=== PATIENT | male | born 1935 | race Caucasian/White ===

== ENCOUNTER 2016-12-08 11:09 | Inpatient (IN) | payer OTHER, BC ==
[2016-12-08 11:46] VITALS: BMI 35.2
--- NOTE | 2016-12-08 11:55 | PDOC ---
History of Present Illness <Jeff Youssef - Last Filed: 12/08/16 14:45> - History of Present Illness Initial Comments: 12/08/16 19:08 Patient is an 81 year old male with significant medical hx of HTN, DM, diabetic neuropathy, and BPH who has been sent to the ED by Dr. Pal for anemia. The patient received blood work several times over the past few weeks that revealed a significant drop in his hemoglobin. Patient started out having an H/ H of 14/48, his following blood work revealed a hemoglobin of 8.9, and then after that it was 8.2.The patient complains of lightheadedness and shortness of breath after walking about 25 feet. The patient denies any blood in stool or urine, recent heavy bleeding or trauma. His BMs have been regular and normal in color; he denies any black stools. Social Hx: Denies ETOH use and tobacco use (former smoker) GI: Harry Armas MD PMD: Alvaro Pal MD <Kelsea Soto - Last Filed: 12/08/16 19:10> - General Chief Complaint: Revisit, Lab Variance Stated Complaint: LAB VARIANCE (PCP SENT) Time Seen by Provider: 12/08/16 11:54 Past History - Psycho/Social/Smoking Cessation Hx Suicidal Ideation: No Smoking History: Former smoker Have you smoked in the past 12 months: No Information on smoking cessation initiated: No <Jeff Youssef - Last Filed: 12/08/16 14:45> <Kelsea Soto - Last Filed: 12/08/16 19:10> - Past Medical History Allergies/Adverse Reactions: Allergies Allergy/AdvReac Type Severity Reaction Status Date / Time No Known Allergies Allergy Verified 12/08/16 11:43 Home Medications: Ambulatory Orders Lisinopril [Prinivil] 20 mg PO DAILY 12/08/16 Metformin HCl 500 mg PO BID 12/08/16 Silodosin [Rapaflo] 8 mg PO DAILY 12/08/16 Review of Systems - Review of Systems Comments:: 12/08/16 19:08 CONSTITUTIONAL: No reported: Fever, Chills, Diaphoresis, Generalized Weakness, Malaise, Loss of Appetite HEENT: No reported: Rhinorrhea, Nasal Congestion, Throat Pain, Throat Swelling, Difficulty Swallowing, Mouth Swelling, Ear Pain, Eye Pain, Visual Changes CARDIOVASCULAR: Reported: Lightheadedness No reported: Chest Pain, Syncope, Palpitations, Irregular Heart Rate, Peripheral Edema RESPIRATORY: Reported: SOB with Exertion No reported: Cough, Shortness of Breath, Orthopnea, Wheezing, Stridor, Hemoptysis GASTROINTESTINAL: No reported: Abdominal pain, Abdominal Distension, Nausea, Vomiting, Diarrhea, Constipation, Melena, Hematochezia GENITOURINARY: No reported: Dysuria, Frequency, Urgency, Hesitancy, Flank Pain, Genital Pain MUSCULOSKELETAL: No reported: Myalgia, Arthralgia, Joint Swelling, Back pain, Neck Pain SKIN: No reported: Rash, Itching, Pallor HEMEATOLOGIC/IMMUNOLOGIC: No reported: Easy Bleeding, Easy Bruising, Lymphadenopathy, Frequent infections ENDOCRINE: No reported: Unexplained Weight Gain, Unexplained Weight Loss, Heat Intolerance , Cold Intolerance NEUROLOGIC: No reported: Headache, Focal Weakness, Paresthesias, Vertigo, Lightheadedness, Unsteady Gait, Seizure, Mental Status Changes, Incontinence PSYCHIATRIC: No reported: Anxiety, Depression <Kelsea Soto - Last Filed: 12/08/16 19:10> *Physical Exam - Vital Signs Last Vital Signs Temp Pulse Resp BP Pulse Ox 97.7 F 96 H 19 156/71 96 12/08/16 11:43 12/08/16 11:43 12/08/16 11:43 12/08/16 11:43 12/08/16 11:43 <MikaelJeff - Last Filed: 12/08/16 14:45> - Vital Signs Last Vital Signs Temp Pulse Resp BP Pulse Ox 97.7 F 89 17 120/81 98 12/08/16 11:43 12/08/16 13:44 12/08/16 13:44 12/08/16 13:44 12/08/16 13:44 - Physical Exam Comments: 12/08/16 19:08 GENERAL: The patient is awake, alert, and fully oriented, Nontoxic - in no acute distress. HEAD: Normocephalic, atraumatic. EYES: extraocular movements intact, sclera anicteric, conjunctiva clear. ENT: Normal voice, Moist mucous membranes. NECK: Normal range of motion, supple LUNGS: Breath sounds equal, clear to auscultation bilaterally. No wheezes, no rhonchi, no rales. HEART:irregularly irregular, without murmur, rub or gallop. ABDOMEN: Soft, nontender, normoactive bowel sounds. No guarding, no rebound.No CVA tenderness EXTREMITIES: Normal range of motion, no edema. No clubbing or cyanosis. No cords , erythema, or tenderness. NEUROLOGICAL: No facial assymetry, Normal speech, PSYCH: Normal mood, normal affect. SKIN: Warm, Dry, normal turgor, RECTAL: Minimal yellow stool in rectal vault. <Kelsea Soto - Last Filed: 12/08/16 19:10> Heart Score/ECG Review - ECG Impressions Comment:: 12/08/16 13:33 Twelve-lead EKG was performed and reviewed by me. Irregularly irregular rrate of 89 <Jeff Youssef - Last Filed: 12/08/16 14:45> ED Treatment Course - LABORATORY CBC & Chemistry Diagram: 12/08/16 12:44 12/08/16 12:44 <Jeff Youssef - Last Filed: 12/08/16 14:45> - LABORATORY CBC & Chemistry Diagram: 12/08/16 12:44 12/08/16 12:44 - ADDITIONAL ORDERS Additional order review: Laboratory Results 12/08/16 12/08/16 12/08/16 12:44 12:44 12:44 INR Sodium 142 Potassium 4.1 Chloride 103 Carbon Dioxide 28 Anion Gap 11 BUN 16 Creatinine 0.9 Creat Clearance w eGFR > 60 Random Glucose 108 H Calcium 8.7 Total Bilirubin 0.5 AST 12 L ALT 18 Alkaline Phosphatase 63 Total Protein 7.2 Albumin 3.6 Stool Occult Blood Negative Blood Type O POSITIVE Antibody Screen Negative 12/08/16 12:44 INR 1.20 H Sodium Potassium Chloride Carbon Dioxide Anion Gap BUN Creatinine Creat Clearance w eGFR Random Glucose Calcium Total Bilirubin AST ALT Alkaline Phosphatase Total Protein Albumin Stool Occult Blood Blood Type Antibody Screen 12/08/16 12:44 RBC 4.84 MCV 60.4 L MCHC 28.9 L RDW 20.6 H MPV 8.5 Neutrophils % 75.5 Lymphocytes % 12.8 Monocytes % 8.5 Eosinophils % 2.7 Basophils % 0.5 - RADIOLOGY Radiograph Interpretation: 12/08/16 19:09 Chest X-Ray Impression: Large heart. No acute pathology. Reported By: Dwaine Greer MD - Consult/PCP Time Called: 13:45 Case discussed with personal care physician: Parvez Lynn - Additional Consults Time Called: 15:15 Consult/PCP: Daljit Bourgeois MD <Kelsea Soto - Last Filed: 12/08/16 19:10> Medical Decision Making - Medical Decision Making 12/08/16 12:22 81y M htn, dm, sent to the ED for evaluation of anemia - the pt has been feelig lightheaded the past few weeks, had been getting outpatient blood work that was slowly trending lower - hgb was 14 a few months ago, 8.9 2 weeks ago a.d 8.2 a few days ago. Pt denies any other sypmtoms otherwise including rectal bleeding, melena, bruising. on exam pt has unremarkable exam, stool was scant in retal vault, but non melanotic. will repeat blood work if severely anemic may need transfusion, but may be able to get outpatient management if hemaglobin not severe. A portion of this note was documented by scribe services under my direction. I have reviewed the details of the note, within reason, and agree with the documentation with the following case summary and management plan written by me 12/08/16 13:33 ekg noted for new onset afib will need to be admitted for further management of new afib stool guaiac negative 12/08/16 14:[address] lynn pt will need further risk stratefication prior to starting a/c by GI will dfer a/c for now will admit to hospitalist service will be admitted under dr. loya service Case discussed in detail with admitting physician including history, physical exam and ancillary studies. Admitting physician has assumed care for the patient, will follow all pending diagnostics and will complete the evaluation and treatment. <Jeff Youssef - Last Filed: 12/08/16 14:45> *DC/Admit/Observation/Transfer - Discharge Dispostion Admit: Yes <Jeff Youssef - Last Filed: 12/08/16 14:45> - Attestations Scribe Attestion: 12/08/16 19:09 Documentation prepared by Kelsea Soto, acting as director global medical affairs for Jeff Youssef MD. <Kelsea Soto - Last Filed: 12/08/16 19:10> Diagnosis at time of Disposition: Anemia Qualifiers: Anemia type: unspecified type Qualified Code(s): D64.9 - Anemia, unspecified Atrial fibrillation Qualifiers: Atrial fibrillation type: unspecified Qualified Code(s): I48.91 - Unspecified atrial fibrillation
[2016-12-08 13:19] LABS: BASOPHIL 0.5 % (0-2.0); EOSINOPHIL 2.7 % (0-4.5); MCHC 28.9 g/dl (32.0-35.9); MEAN CELL VOLUME 60.4 fl (80-96); MEAN PLT VOLUME 8.5 fl (7.5-11.1); NEUTROPHILS 75.5 % (42.8-82.8); PLATELET COUNT 308 K/MM3 (134-434); RDW 20.6 % (11.9-15.9); WHITE BLOOD COUNT 12.3 K/mm3 (4.0-10.0)
[2016-12-08 13:21] LABS: MCH 17.4 pg (25.7-33.7)
[2016-12-08 13:32] LABS: INR 1.2 (0.82-1.09); PROTHROMBIN TIME (PATIENT) 13.2 SEC (9.98-11.88)
[2016-12-08 13:47] LABS: ALBUMIN 3.6 g/dl (3.4-5.0); ALK PHOS 63 U/L (45-117); ANION GAP 11 (8-16); BILIRUBIN,TOTAL 0.5 mg/dL (0.2-1.0); CALCIUM 8.7 mg/dL (8.5-10.1); CO2 28 mmol/L (21-32); CREATININE 0.9 mg/dL (0.7-1.3); GLUCOSE,RANDOM 108 mg/dL (74-106); SGOT/AST 12 U/L (15-37); SGPT/ALT 18 U/L (12-78); TOT PROT 7.2 g/dl (6.4-8.2)
[2016-12-08 13:58] LABS: ANISOCYTOSIS 2+; HYPOCHROMIA 2+; OVALOCYTES 2+; POIKILOCYTOSIS 1+; POLYCHROMASIA 1+
--- NOTE | 2016-12-08 16:02 | HP ---
CHIEF COMPLAINT:Sent by PMD for anemia PCP:Lalitha HISTORY OF PRESENT ILLNESS: 81M with PMH of HTN DM diabetic neuropathy BPH presents to the [facility] at the direction of his PMD for worsening anemia. Per the patient his Hb was 14 a few months ago and he had a CBC done on last and was called by PMD to repeat the test yesterday since his hemoglobin was low. Results came back today which showed worsening anemia and he was sent to the ED for evaluation. In the ED he was also noted to be anemic. On further evaluation he was found to be in new onset A fib. He denies nausea vomiting fevers chills chest pain palpitations hematuria or dysuria. He states his exercise tolerance over the past 5-6 months has been declining. He now has to stop for shortness of breath after walking about 25 feet. He also endorses mild amount dizziness and he states it is most notably when he yawns. ER course was notable for: (1)Labs (2)CXR (3) Recent Travel:Denies PAST MEDICAL HISTORY:As above Social History: Smoking:Denies Alcohol:Denies Drugs: Denies Allergies No Known Allergies Allergy (Verified 12/08/16 11:43) HOME MEDICATIONS: Home Medications Medication Instructions Recorded Lisinopril [Prinivil] 20 mg PO DAILY 12/08/16 Metformin HCl 500 mg PO BID 12/08/16 Silodosin [Rapaflo] 8 mg PO DAILY 12/08/16 REVIEW OF SYSTEMS CONSTITUTIONAL: Absent: fever, chills, diaphoresis, generalized weakness, malaise, loss of appetite, weight change HEENT: Absent: rhinorrhea, nasal congestion, throat pain, throat swelling, difficulty swallowing, mouth swelling, ear pain, eye pain, visual changes CARDIOVASCULAR: Absent: chest pain, syncope, palpitations, irregular heart rate, lightheadedness , peripheral edema RESPIRATORY: Absent: cough, shortness of breath, orthopnea, wheezing, stridor, hemoptysis Present: dyspnea with exertion GASTROINTESTINAL: Absent: abdominal pain, abdominal distension, nausea, vomiting, diarrhea, constipation, melena, hematochezia GENITOURINARY: Absent: dysuria, frequency, urgency, hesitancy, hematuria, flank pain, genital pain MUSCULOSKELETAL: Absent: myalgia, arthralgia, joint swelling, back pain, neck pain SKIN: Absent: rash, itching, pallor HEMATOLOGIC/IMMUNOLOGIC: Absent: easy bleeding, easy bruising, lymphadenopathy, frequent infections ENDOCRINE: Absent: unexplained weight gain, unexplained weight loss, heat intolerance, cold intolerance NEUROLOGIC: Absent: headache, focal weakness or paresthesias, unsteady gait, seizure, mental status changes, bladder or bowel incontinence Present: dizziness PSYCHIATRIC: Absent: anxiety, depression, suicidal or homicidal ideation, hallucinations. PHYSICAL EXAMINATION Vital Signs - 24 hr 12/08/16 15:20 Pulse Rate 90 Respiratory 20 Rate Blood Pressure 133/80 O2 Sat by Pulse 97 Oximetry (%) GENERAL: Awake, alert, and fully oriented, in no acute distress. HEAD: Normal with no signs of trauma. EYES: Pupils equal, round and reactive to light, extraocular movements intact, Positive for conjunctival pallor. EARS, NOSE, THROAT: Ears normal, nares patent, oropharynx clear without exudates. Moist mucous membranes. NECK: Normal range of motion, supple without lymphadenopathy, JVD, or masses. LUNGS: Breath sounds equal, clear to auscultation bilaterally. No wheezes, and no crackles. No accessory muscle use. HEART: Irregularly Irregular rhythm, S1S2 without murmur ABDOMEN: Soft, nontender, not distended, normoactive bowel sounds, no guarding, no rebound MUSCULOSKELETAL: No CVA tenderness. UPPER EXTREMITIES: warm, well-perfused. No peripheral edema. LOWER EXTREMITIES: warm, well-perfused. No calf tenderness. trace non pitting edema. NEUROLOGICAL: Cranial nerves II-XII intact. Normal speech. PSYCHIATRIC: Cooperative. Good eye contact. Appropriate mood and affect. EKG: Afib CXR: enlarged heart no acute pathology [id number] Active Medications Generic Name Dose Route Start Last Admin Trade Name Freq PRN Reason Stop Dose Admin Gabapentin 300 mg 12/08/16 22:00 Neurontin - PO BID [facility] Insulin Aspart 1 vial 12/08/16 16:30 Novolog Vial Sliding Scale - SQ ACHS [facility] Protocol Lisinopril 20 mg 12/09/16 10:00 Prinivil PO DAILY [facility] Tamsulosin HCl 0.4 mg 12/09/16 08:30 Flomax - PO DAILY@0830 [facility] ASSESSMENT/PLAN: 81M with HTN DM and BPH admitted to the hospital for new onset A fib and acute microcytic anemia. New onset A fib: possible may be due to acute onset anemia Admit to telemetry Echo ordered Troponin negative cardiology consult [id number] score 4 Will hold on anticoagulation at this time secondary to anemia rate is controlled at this time Check TFTs Microcytic anemia:unsure of the cause at this time Will send iron studies GI consult Retic count trend CBC transfuse PRN Stool for occult blood negative RDW high check B12 and folate HTN: restart lisinopril Trend BP DM: hold metformin ISS finger sticks for BGM ACHS HbA1C BPH: we do not carry rapaflo will start flomax FEN: no IVF no electrolyte issues diabetic diet PPx: hold chemical prophylaxis for now -will place SCDs no GI PPx criteria met Will assess daily need for PT at this time he does not need PT consult as he was ambulating patient seen and case discussed with attending Dr. Castaneda Visit type - Emergency Visit Emergency Visit: Yes ED Registration Date: 12/08/16 Care time: The patient presented to the Emergency Department on the above date and was hospitalized for further evaluation of their emergent condition. - New Patient This patient is new to me today: Yes Date on this admission: 12/08/16 - Critical Care Critical Care patient: No
--- NOTE | 2016-12-08 16:31 | PN ---
Teaching Attending Note Name of Resident: Jose Enrique Johnson ATTENDING PHYSICIAN STATEMENT I saw and evaluated the patient. I reviewed the resident's note and discussed the case with the resident. I agree with the resident's findings and plan as documented. SUBJECTIVE: The patient is an 81 year old male with a significant past medical history of hypertension and type two diabetes, who presented to the ED at the request of his primary care physician for evaluation of new onset anemia. He denies melena , hematochezia, hematuria, back/thigh pain. In the ED, he was found to have atrial fibrillation. OBJECTIVE: The patient is well appearing and in no acute distress He was guiac negative in the ED ASSESSMENT AND PLAN: -Anemia Initial guiac negative Low MCV with high RWN points to blood loss and a GI source Will need to repeat guiac Will conduct anemia work-up, beginning with reticulocyte count Will consult GI -Atrial fibrillation He is rate controlled [id number] indicates need for anticoagulation but we will hold for now, pending cardiology and gastroenterology input given suspected GI bleeding His dyspnea is likely due to anemia Will obtain TTE Will consult cardiology See resident note for full details
--- NOTE | 2016-12-08 16:38 | CON.CARD ---
Consult Consult Specialty:: cardiology Referred by:: marie Reason for Consultation:: afib, anemia - History of Present Illness Chief Complaint: dizziness History of Present Illness: 81 yo male referred to ER by dr salazar for lightheadedness and new anemia. per ER notes, his hgb was 8's with PMD recently, from 14 a few months ago. occult blood negative in ER. he was noted to be in new afib with controlled HR. pt describes feeling mild dizzy/LH "all the time" for past 2 wks or so. including both at rest (e.g. driving car) and walking/standing up. he also has new sob if walks short distances, which he did not have before. no cp/pressure/tightness, no palpitations. PMH: DM HTN no prior CAD/CHF remote ex-cigs (50 yrs ago) no FH of early MIs - Smoking History Smoking history: Former smoker Have you smoked in the past 12 months: No Home Medications - Allergies Allergies/Adverse Reactions: Allergies Allergy/AdvReac Type Severity Reaction Status Date / Time No Known Allergies Allergy Verified 12/08/16 11:43 - Home Medications Home Medications: Ambulatory Orders Lisinopril [Prinivil] 20 mg PO DAILY 12/08/16 Metformin HCl 500 mg PO BID 12/08/16 Silodosin [Rapaflo] 8 mg PO DAILY 12/08/16 Review of Systems - Review of Systems Constitutional: denies: Chills, Fever Eyes: denies: Eye Pain HENT: denies: Nasal Congestion Neck: denies: Stiffness Cardiovascular: denies: Palpitations Respiratory: denies: Orthopnea, PND Gastrointestinal: denies: Diarrhea, Rectal Bleeding Genitourinary: denies: Burning, Hematuria Musculoskeletal: denies: Muscle Pain Integumentary: denies: Rash Neurological: denies: Numbness, Seizure, Syncope Endocrine: denies: Excessive Sweating Hematology/Lymphatic: denies: Excessive Bleeding Vital Signs: Vital Signs Temperature 97.7 F 12/08/16 11:43 Pulse Rate 90 12/08/16 15:20 Respiratory Rate 20 12/08/16 15:20 Blood Pressure 133/80 12/08/16 15:20 O2 Sat by Pulse Oximetry (%) 97 12/08/16 15:20 Constitutional: Yes: Well Nourished, No Distress Eyes: No: Sclera Icterus HENT: No: Nasal Congestion Neck: No: Decreased ROM Respiratory: Yes: CTA Bilaterally. No: Accessory Muscle Use, Rales, Wheezes Gastrointestinal: Yes: Normal Bowel Sounds. No: Distention, Hepatomegaly, Palpable Mass, Tenderness Cardiovascular: Yes: Pulse Irregular JVD: Yes Carotid Bruit: No PMI: Non-Displaced Heart Sounds: Yes: S1, S2. No: Gallop Murmur: No: Systolic Murmur, Diastolic Murmur Musculoskeletal: Yes: Other (No kyphosis) Extremities: No: Cold, Cyanosis Edema: No Peripheral Pulses: 2+ Left Carotid, 2+ Right Carotid, 2+ Left Doralis Pedis, 2+ Right Dorsalis Pedis Integumentary: No: Jaundice Neurological: Yes: Alert, Oriented (x3) Psychiatric: No: Agitated - Other Data Labs, Other Data: INR, PTT INR 1.20 (0.82-1.09) H 12/08/16 12:44 Laboratory Tests 12/08/16 12/08/16 12/08/16 12:44 12:44 12:44 WBC 12.3 H Hgb 8.4 L MCV 60.4 L Plt Count 308 INR 1.20 H Sodium 142 Potassium 4.1 Carbon Dioxide 28 BUN 16 Creatinine 0.9 AST 12 L ALT 18 ekg 12/08/16: afib (89 bpm); normal axis/intervals; no path q's; no ST-T abn telem: afib, good HRs Imaging - Results Chest X-ray: Report Reviewed (clear lungs/pleura) Assessment/Plan new atrial fib: -HRs controlled (without meds) -? if contributing to new dizziness and/or LOPEZ sx's, vs all sec to anemia ( these sx's going on 2 wks which, of note, is the first time labs showed hgb down , per ER note) -despite pt without overt rectal bleeding or melena, and stool was neg for occult blood, the precipitous decline in counts from few mo prior and the very low MCV are concerning for intermittent occult GIBs. -starting with baseline of Hgb 8, he could have catastrophic consequences if started on AC and bleeds briskly. -CHADS VASC = 4, with approx 4%/year risk of CVA -the risk of stroke in next several days is therefore statistically much less than risk of dangerous bleeding on AC, and hence AC will be deferred until GIB w /u is completed and pt can be risk-stratified for severe bleeding -check echo (no overt chf present but ? JVD on exam--vs irreg afib arterial pulsations mimicking jvd pulsations) SOB with exertion: -new sx x 2 wks -suspect sec to anemia (as above) -also could be sx of afib and loss of AV synchrony -no overt chf, ? of JVD as disc'd above, cxr clear -check bnp -defer lasix -f/u echo -given anemia and afib are 2 much more likely explanation for these sx's, and pt without ischemic ecg findings or cp, will defer stress test at present time anemia: -as disc'd above -await GI input, ? heme (at discretion of hospitalists coverage) HTN: -reasonable control here -cont home lisinopril, given no brisk bleeding is suspected DM: -on orals at home -per pmd preop CV eval: -may need EGD and FOC -Revised CV Risk Index = 1, unknown functional status -no s/sx of overt chf or acute myocardial ischemia -he is at low-intermediate risk for periop CV complications from low risk endoscopic procedures--may proceed without further testing
[2016-12-08] MEDS: INSULIN SLIDING SCALE (NOVOLOG) 1 VIAL SQ SCH ×2 (17:17→22:44)
--- NOTE | 2016-12-08 17:25 | EKG ---
Test Reason : Blood Pressure : / mmHG Vent. Rate : 089 BPM Atrial Rate : 089 BPM P-R Int : 000 ms QRS Dur : 098 ms QT Int : 370 ms P-R-T Axes : 000 -03 022 degrees QTc Int : 450 ms ATRIAL FIBRILLATION NONSPECIFIC ST ABNORMALITY ABNORMAL ECG NO PREVIOUS ECGS AVAILABLE Confirmed by KIRBY FLOYD MD ([id number]) on 12/08/2016 5:25:30 PM Referred By: Confirmed By:KIRBY FLOYD MD
[2016-12-08 17:53] LABS: FERRITIN 8.836 ng/ml (16.4-293.9); THYROID STIMULATING HORMONE 2.02 uIU/ml (0.358-3.74)
[2016-12-08] MEDS: GABAPENTIN 300 MG CAPSULE (FP) PO SCH (22:42)
[2016-12-09] MEDS: INSULIN SLIDING SCALE (NOVOLOG) 1 VIAL SQ SCH ×4 (06:28→21:43)
--- NOTE | 2016-12-09 08:00 | CON.GI ---
Consult Consult Specialty:: GI Referred by:: Dr Pal Reason for Consultation:: Anemia - History of Present Illness Chief Complaint: lightheadedness, LOPEZ History of Present Illness: 81 M with h/o DM, HTN, admitted with anemia and new AF. He c/o recent LOPEZ and fatigue. Hgb was noted to be 8 when checked by PCP, formerly 14. He is a good historian and denies black or red stools at any time in his recollection. He has had no pain and states his symptoms began acutely 2 weeks ago. He is currently in AF and is comfortable at this time. There have been no recent surgeries and he denies any pain or swelling. - History Source History Provided By: Patient, Medical Record Limitations to Obtaining History: No Limitations - Past Medical History Cardio/Vascular: Yes: HTN Renal/: Yes: BPH Endocrine: Yes: Diabetes Mellitus - Smoking History Smoking history: Former smoker Have you smoked in the past 12 months: No Home Medications - Allergies Allergies/Adverse Reactions: Allergies Allergy/AdvReac Type Severity Reaction Status Date / Time No Known Allergies Allergy Verified 12/08/16 11:43 - Home Medications Home Medications: Ambulatory Orders Lisinopril [Prinivil] 20 mg PO DAILY 12/08/16 Metformin HCl 500 mg PO BID 12/08/16 Silodosin [Rapaflo] 8 mg PO DAILY 12/08/16 Physical Exam-GI Vital Signs: Vital Signs Temperature 97.8 F 12/09/16 01:00 Pulse Rate 76 12/09/16 06:00 Respiratory Rate 20 12/09/16 06:00 Blood Pressure 104/69 12/09/16 06:00 O2 Sat by Pulse Oximetry (%) 98 12/08/16 18:27 Constitutional: Yes: Well Nourished, No Distress HENT: Yes: Normocephalic Neck: Yes: Supple Cardiovascular: Yes: Regular Rate and Rhythm Respiratory: Yes: CTA Bilaterally Gastrointestinal Inspection: Yes: WNL ...Auscultate: Yes: Normoactive Bowel Sounds ...Palpate: Yes: Soft. No: Tenderness ...Rectal Exam: Yes: Guaiac Negative (in ER.) Neurological: Yes: WNL Labs: INR, PTT INR 1.20 (0.82-1.09) H 12/08/16 12:44 Assessment/Plan 81 M with above history admitted with new AF and anemia. He denies recent bleeding and is guaiac neg. Acute onset of symptoms likely secondary to AF. Etiology of anemia unclear. Will need EGD and colonoscopy which will be done tomorrow AM at 8AM if cleared by cardiology. Consider heme consult as there is no overt evidence of GIB
[2016-12-09 08:08] LABS: BASOPHIL 0.5 % (0-2.0); EOSINOPHIL 3.7 % (0-4.5); MCHC 29.1 g/dl (32.0-35.9); MEAN CELL VOLUME 60.6 fl (80-96); MEAN PLT VOLUME 8.7 fl (7.5-11.1); NEUTROPHILS 71.8 % (42.8-82.8); PLATELET COUNT 287 K/MM3 (134-434); RDW 20.3 % (11.9-15.9); WHITE BLOOD COUNT 10.7 K/mm3 (4.0-10.0)
[2016-12-09 08:16] LABS: MCH 17.6 pg (25.7-33.7)
[2016-12-09 08:32] LABS: ANION GAP 10 (8-16); CALCIUM 8.3 mg/dL (8.5-10.1); CO2 27 mmol/L (21-32); CREATININE 0.8 mg/dL (0.7-1.3); GLUCOSE,RANDOM 108 mg/dL (74-106); PHOSPHOROUS 3.2 mg/dL (2.5-4.9)
[2016-12-09] MEDS: GABAPENTIN 300 MG CAPSULE (FP) PO SCH ×2 (09:29→21:43)
[2016-12-09] MEDS: TAMSULOSIN HCL 0.4 MG CAP.ER.24H (FP) PO SCH (09:29)
[2016-12-09] MEDS: LISINOPRIL 20 MG TABLET (FP) PO SCH (09:29)
[2016-12-09 10:27] LABS: TROPONIN I < 0.02 ng/ml (0.00-0.05)
--- NOTE | 2016-12-09 10:35 | PN ---
Progress Note (short form) - Note Progress Note: s: no cp sob palps dizzy o: Vital Signs Period Temp Pulse Resp BP Sys/Turcios Pulse Ox Last 24 Hr 97.3 F-98.1 F 76-96 17-20 104-156/57-81 96-98 Constitutional: Yes: Well Nourished, No Distress Eyes: No: Sclera Icterus Respiratory: Yes: CTA Bilaterally. No: Accessory Muscle Use, Rales, Wheezes Gastrointestinal: Yes: Normal Bowel Sounds. No: Distention, Hepatomegaly, Palpable Mass, Tenderness Cardiovascular: Yes: Pulse Irregular Heart Sounds: Yes: S1, S2. No: Gallop Murmur: No: Systolic Murmur, Diastolic Murmur Extremities: No: Cold, Cyanosis Edema: No Integumentary: No: Jaundice diaphoresis Neurological: Yes: Alert, Oriented (x3) Psychiatric: No: Agitated Current Medications Generic Name Dose Route Start Last Admin Trade Name Freq PRN Reason Stop Dose Admin Bisacodyl 10 mg 12/09/16 16:00 Dulcolax - PO 12/09/16 20:01 1600,2000 DINO Gabapentin 300 mg 12/08/16 22:00 12/09/16 09:29 Neurontin - PO 300 mg BID DINO Administration Insulin Aspart 1 vial 12/08/16 16:30 12/09/16 06:28 Novolog Vial Sliding Scale - SQ Not Given ACHS [facility] Protocol Lisinopril 20 mg 12/09/16 10:00 12/09/16 09:29 Prinivil PO 20 mg DAILY DINO Administration Polyethylene Glycol 255 gm 12/09/16 16:00 Miralax (For Bowel Prep) - PO 12/09/16 16:01 ONCE ONE Tamsulosin HCl 0.4 mg 12/09/16 08:30 12/09/16 09:29 Flomax - PO 0.4 mg DAILY@0830 DINO Administration CBC, BMP 12/09/16 05:35 12/09/16 05:35 ekg 12/08/16: afib (89 bpm); normal axis/intervals; no path q's; no ST-T abn telem: afib, good HRs Assessment/Plan new atrial fib: -HRs controlled (without meds) -? if contributing to new dizziness and/or LOPEZ sx's, vs all sec to anemia ( these sx's going on 2 wks which, of note, is the first time labs showed hgb down , per ER note) -despite pt without overt rectal bleeding or melena, and stool was neg for occult blood, the precipitous decline in counts from few mo prior and the very low MCV are concerning for intermittent occult GIBs. -starting with baseline of Hgb 8, he could have catastrophic consequences if started on AC and bleeds briskly. -CHADS VASC = 4, with approx 4%/year risk of CVA -the risk of stroke in next several days is therefore statistically much less than risk of dangerous bleeding on AC, and hence AC will be deferred until GIB w /u is completed and pt can be risk-stratified for severe bleeding -check echo SOB with exertion: -new sx x 2 wks -suspect sec to anemia (as above) -also could be sx of afib and loss of AV synchrony -no overt chf, cxr clear -defer lasix -f/u echo -given anemia and afib are 2 much more likely explanation for these sx's, and pt without ischemic ecg findings or cp, will defer stress test at present time anemia: -as disc'd above -await GI input, ? heme (at discretion of hospitalists coverage) HTN: -reasonable control here -cont home lisinopril, given no brisk bleeding is suspected DM: -on orals at home -per pmd preop CV eval: -may need EGD and FOC -Revised CV Risk Index = 1, unknown functional status -no s/sx of overt chf or acute myocardial ischemia -he is at low-intermediate risk for periop CV complications from low risk endoscopic procedures--may proceed without further testing
--- NOTE | 2016-12-09 15:42 | PN ---
Physical Exam: SUBJECTIVE: Patient seen and examined at bedside feels well no complaints OBJECTIVE: Vital Signs Period Temp Pulse Resp BP Sys/Turcios Pulse Ox Last 24 Hr 97.3 F-98.2 F 76-89 18-20 104-146/57-72 98-98 GENERAL: Awake, alert, and fully oriented, in no acute distress. HEAD: Normal with no signs of trauma. EYES: Pupils equal, round and reactive to light, extraocular movements intact, Positive for conjunctival pallor. EARS, NOSE, THROAT: Ears normal, nares patent, oropharynx clear without exudates. Moist mucous membranes. NECK: Normal range of motion, supple without lymphadenopathy, JVD, or masses. LUNGS: Breath sounds equal, clear to auscultation bilaterally. No wheezes, and no crackles. No accessory muscle use. HEART: Irregularly Irregular rhythm, S1S2 without murmur ABDOMEN: Soft, nontender, not distended, normoactive bowel sounds, no guarding, no rebound MUSCULOSKELETAL: No CVA tenderness. UPPER EXTREMITIES: warm, well-perfused. No peripheral edema. LOWER EXTREMITIES: warm, well-perfused. No calf tenderness. trace non pitting edema. NEUROLOGICAL: Cranial nerves II-XII intact. Normal speech. PSYCHIATRIC: Cooperative. Good eye contact. Appropriate mood and affect. Laboratory Results - last 24 hr 12/08/16 12/08/16 12/08/16 16:44 17:16 18:45 WBC RBC Hgb Hct MCV MCHC RDW Plt Count MPV Neutrophils % Lymphocytes % Monocytes % Eosinophils % Basophils % Sodium Potassium Chloride Carbon Dioxide Anion Gap BUN Creatinine POC Glucometer 111 Random Glucose Calcium Phosphorus Magnesium Ferritin 8.836 L Creatine Kinase Troponin I B-Natriuretic Peptide 600.02 H Vitamin B12 459 Serum Folate 20 H TSH 2.02 12/08/16 12/09/16 12/09/16 22:41 03:00 05:35 WBC 10.7 H RBC 4.53 Hgb 8.0 L Hct 27.5 L MCV 60.6 L MCHC 29.1 L RDW 20.3 H Plt Count 287 MPV 8.7 Neutrophils % 71.8 Lymphocytes % 13.7 Monocytes % 10.3 H Eosinophils % 3.7 Basophils % 0.5 Sodium Potassium Chloride Carbon Dioxide Anion Gap BUN Creatinine POC Glucometer 113 Random Glucose Calcium Phosphorus Magnesium Ferritin Creatine Kinase Troponin I Cancelled B-Natriuretic Peptide Vitamin B12 Serum Folate TSH 12/09/16 12/09/16 12/09/16 05:35 05:35 05:35 WBC RBC Hgb Hct MCV MCHC RDW Plt Count MPV Neutrophils % Lymphocytes % Monocytes % Eosinophils % Basophils % Sodium 142 Potassium 4.2 Chloride 105 Carbon Dioxide 27 Anion Gap 10 BUN 16 Creatinine 0.8 POC Glucometer 123 Random Glucose 108 H Calcium 8.3 L Phosphorus 3.2 Magnesium 2.0 Ferritin Creatine Kinase 52 Cancelled Troponin I < 0.02 Cancelled B-Natriuretic Peptide Vitamin B12 Serum Folate TSH 12/09/16 11:43 WBC RBC Hgb Hct MCV MCHC RDW Plt Count MPV Neutrophils % Lymphocytes % Monocytes % Eosinophils % Basophils % Sodium Potassium Chloride Carbon Dioxide Anion Gap BUN Creatinine POC Glucometer 135 Random Glucose Calcium Phosphorus Magnesium Ferritin Creatine Kinase Troponin I B-Natriuretic Peptide Vitamin B12 Serum Folate TSH Active Medications Generic Name Dose Route Start Last Admin Trade Name Freq PRN Reason Stop Dose Admin Bisacodyl 10 mg 12/09/16 16:00 Dulcolax - PO 12/09/16 20:01 1600,2000 DINO Gabapentin 300 mg 12/08/16 22:00 12/09/16 09:29 Neurontin - PO 300 mg BID DINO Administration Insulin Aspart 1 vial 12/08/16 16:30 12/09/16 11:44 Novolog Vial Sliding Scale - SQ Not Given ACHS [facility] Protocol Lisinopril 20 mg 12/09/16 10:00 12/09/16 09:29 Prinivil PO 20 mg DAILY DINO Administration Polyethylene Glycol 255 gm 12/09/16 16:00 Miralax (For Bowel Prep) - PO 12/09/16 16:01 ONCE ONE Tamsulosin HCl 0.4 mg 12/09/16 08:30 12/09/16 09:29 Flomax - PO 0.4 mg DAILY@0830 DINO Administration ASSESSMENT/PLAN: 81M with HTN DM and BPH admitted to the hospital for new onset A fib and acute microcytic anemia. New onset A fib: possible may be due to acute onset anemia Admit to telemetry Echo results noted Troponin negative cardiology consult appreciated-cleared for endoscopy [id number] score 4 Will hold on anticoagulation at this time secondary to anemia until has colonoscopy/EGD rate is controlled at this time without beta blockers but will likely need low dose beta blockers on discharge TFTs-WNL Microcytic anemia:unsure of the cause at this time iron studies-pending GI consult Retic count high @ 1.9 trend CBC transfuse PRN Stool for occult blood negative RDW high B12-wnl and folate-high HTN: BP well controlled at this time continue lisinopril DM: hold metformin ISS finger sticks for BGM ACHS HbA1C 7.4 BPH: we do not carry rapaflo will start flomax FEN: no IVF no electrolyte issues CLD then NPO past midnight for endoscopy PPx: hold chemical prophylaxis for now -continue SCDs no GI PPx criteria met Will assess daily need for PT at this time he does not need PT consult as he was ambulating patient seen and case discussed with attending Dr. Hackett Discharge anticipated for tomorrow Visit type - Emergency Visit Emergency Visit: Yes ED Registration Date: 12/08/16 Care time: The patient presented to the Emergency Department on the above date and was hospitalized for further evaluation of their emergent condition. - New Patient This patient is new to me today: No - Critical Care Critical Care patient: No - Discharge Referral Referred to [facility] Yes Physician Referral: Alvaro Doty MD ([facility])
[2016-12-09] MEDS ORDERED: POLYETHYLENE GLYCOL 3350 255 GM BTL PO ONE (16:00)
[2016-12-09] MEDS: BISACODYL 5 MG TABLET.DR (FP) PO SCH ×2 (17:03→20:09)
--- NOTE | 2016-12-09 17:51 | PN ---
Teaching Attending Note Name of Resident: Jose Enrique Johnson ([email or web address]) ATTENDING PHYSICIAN STATEMENT I saw and evaluated the patient. I reviewed the resident's note and discussed the case with the resident. I agree with the resident's findings and plan as documented. 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 - might need some AV yazan blockage at dc , to avoid episodes of RVR - echo reviewed. b/l atrial enlargement - CHADSVASC of 4 , ideally need AC, will decide on that after GI w/u , family and pt understand 2- Iron def anemia : likely from chronic GI bleed ( upper vs lower ) . last colo approximately 7 yrs ago - for EGD and colonoscopy tomorrow to determine etiology - repeat OB in stool - start iron supp at dc 3- Dm : hold metformin and cont SSI Dispo : possible dc tomorrow after dc
[2016-12-10] MEDS: INSULIN SLIDING SCALE (NOVOLOG) 1 VIAL SQ SCH ×2 (06:11→11:50)
[2016-12-10] MEDS ORDERED: PROPOFOL 20 ML ONE ×2 (07:58)
[2016-12-10 08:08] LABS: SERUM IRON 13 ug/dL (38-169); TOTAL IRON BINDING CAPACITY 332 ug/dL (250-450); TRANSFERRIN 269 mg/dL (200-370); UIBC 319 ug/dL (111-343)
[2016-12-10 08:11] LABS: MCHC 29.9 g/dl (32.0-35.9); MEAN CELL VOLUME 60.4 fl (80-96); MEAN PLT VOLUME 8.5 fl (7.5-11.1); PLATELET COUNT 328 K/MM3 (134-434); RDW 20.3 % (11.9-15.9); WHITE BLOOD COUNT 10.8 K/mm3 (4.0-10.0)
[2016-12-10 08:31] LABS: MCH 18.1 pg (25.7-33.7)
--- NOTE | 2016-12-10 09:50 | PN ---
Progress Note (short form) - Note Progress Note: ADDENDUM: S/P EGD and colon to evaluate new anemia EGD normal Colon with large circumferential mass in asc colon Biopsies pending CT chest, abd, pelvis ordered Case d/w PCP Dr Pal and hospitalist Dr Hackett Will need surgery and onc evaluations FF
[2016-12-10] MEDS ORDERED: METOPROLOL TARTRATE 25 MG TABLET (FP) PO SCH (10:00)
--- NOTE | 2016-12-10 11:07 | CONSULT ---
Consult Consult Specialty:: colorectal surgery Reason for Consultation:: malignant neoplasm right colon - History of Present Illness Chief Complaint: r colon mass History of Present Illness: patient is 81M with new anemia and related sx presents to hospital and workup includes colonoscopy today showing R colon mass suspicious for malignancy. last colonoscopy 7 mos ago. no pain or obstructive symptoms. no overt bleeding. new dx afib. echo okay. patient lives at home and has alot of independence. his anemia contributes to SOB on exertion however his symptoms seem more severe than his anemia (some discordance). no SOB at rest. - Past Medical History Cardio/Vascular: Yes: HTN Renal/: Yes: BPH Endocrine: Yes: Diabetes Mellitus - Smoking History Smoking history: Former smoker Have you smoked in the past 12 months: No Home Medications - Allergies Allergies/Adverse Reactions: Allergies Allergy/AdvReac Type Severity Reaction Status Date / Time No Known Allergies Allergy Verified 12/08/16 11:43 - Home Medications Home Medications: Ambulatory Orders Lisinopril [Prinivil] 20 mg PO DAILY 12/08/16 Metformin HCl 500 mg PO BID 12/08/16 Silodosin [Rapaflo] 8 mg PO DAILY 12/08/16 Review of Systems - Review of Systems Constitutional: reports: Weakness. denies: Chills, Fever Eyes: denies: Blind Spots, Blurred Vision HENT: denies: Difficult Swallowing, Ear Discharge Neck: denies: Decreased ROM, Lumps Cardiovascular: denies: Chest Pain, Edema Respiratory: denies: Cough, Exercise Intolerance Gastrointestinal: denies: Abdominal Pain, Bloating Genitourinary: denies: Burning, Discharge Musculoskeletal: denies: Back Pain, Crepitus Integumentary: denies: Blister, Bruising Neurological: denies: Change in LOC, Change in Speech Endocrine: denies: Excessive Sweating, Flushing, Unexplained Weight Loss Hematology/Lymphatic: denies: Easily Bruised, Excessive Bleeding Psychiatric: denies: Altered Sleep Pattern, Anxiety Physical Exam Vital Signs: Vital Signs Temperature 97.8 F 12/10/16 08:38 Pulse Rate 87 12/10/16 09:16 Respiratory Rate 20 12/10/16 09:16 Blood Pressure 110/53 12/10/16 09:16 O2 Sat by Pulse Oximetry (%) 97 12/10/16 09:16 Constitutional: Yes: No Distress, Calm Eyes: Yes: Conjunctiva Clear, EOM Intact HENT: Yes: Atraumatic, Normocephalic Neck: Yes: Supple, Trachea Midline Cardiovascular: Yes: Regular Rate and Rhythm Respiratory: Yes: Regular, CTA Bilaterally Gastrointestinal: Yes: Soft, Distention (just had colonscopy). No: Tenderness ...Rectal Exam: Yes: Deferred Renal/: No: CVA Tenderness - Left, CVA Tenderness - Right Musculoskeletal: No: Joint Stiffness, Joint Swelling Extremities: No: Amputation, Calf Tenderness Integumentary: No: Erythema, Rash Neurological: Yes: Alert, Oriented Psychiatric: Yes: Alert, Oriented Labs: CBC, BMP 12/10/16 05:50 12/09/16 05:35 Problem List - Problems (1) Ascending colon malignant neoplasm Assessment/Plan: d/w pt, his and his son situation will need staging CT C/A/P await results I think if CT shows no mets in will prob proceed to surgery early next week. can potentially do tomorrow but will need medical clearance prior to any surgical intervention. son also wants "second opinion" just to make sure about big decision making. will college counselor them after CT results are back. Code(s): C18.2 - MALIGNANT NEOPLASM OF ASCENDING COLON
[2016-12-10] MEDS: TAMSULOSIN HCL 0.4 MG CAP.ER.24H (FP) PO SCH (11:08)
[2016-12-10] MEDS: LISINOPRIL 20 MG TABLET (FP) PO SCH (11:08)
[2016-12-10] MEDS: GABAPENTIN 300 MG CAPSULE (FP) PO SCH (11:08)
--- NOTE | 2016-12-10 12:06 | PN ---
Progress Note (short form) - Note Progress Note: s: no cp sob palps dizzy o: Vital Signs Period Temp Pulse Resp BP Sys/Turcios Pulse Ox Last 24 Hr 96.3 F-98.8 F 80-98 17-22 98-162/44-89 95-99 Constitutional: Yes: Well Nourished, No Distress Eyes: No: Sclera Icterus Respiratory: Yes: CTA Bilaterally. No: Accessory Muscle Use, Rales, Wheezes Gastrointestinal: Yes: Normal Bowel Sounds. No: Distention, Hepatomegaly, Palpable Mass, Tenderness Cardiovascular: Yes: Pulse Irregular Heart Sounds: Yes: S1, S2. No: Gallop Murmur: No: Systolic Murmur, Diastolic Murmur Extremities: No: Cold, Cyanosis Edema: No Integumentary: No: Jaundice diaphoresis Neurological: Yes: Alert, Oriented (x3) Psychiatric: No: Agitated Current Medications Generic Name Dose Route Start Last Admin Trade Name Freq PRN Reason Stop Dose Admin Gabapentin 300 mg 12/08/16 22:00 12/10/16 11:08 Neurontin - PO 300 mg BID DINO Administration Insulin Aspart 1 vial 12/08/16 16:30 12/10/16 11:50 Novolog Vial Sliding Scale - SQ Not Given ACHS [facility] Protocol Lisinopril 20 mg 12/09/16 10:00 12/10/16 11:08 Prinivil PO 20 mg DAILY DINO Administration Metoprolol Tartrate 12.5 mg 12/10/16 10:00 12/10/16 11:08 Lopressor - PO 12.5 mg BID DINO Administration Tamsulosin HCl 0.4 mg 12/09/16 08:30 12/10/16 11:08 Flomax - PO 0.4 mg DAILY@0830 DINO Administration CBC, BMP 12/10/16 05:50 12/09/16 05:35 ekg 12/08/16: afib (89 bpm); normal axis/intervals; no path q's; no ST-T abn telem: afib, good HRs echo 12/2016: nl lv/rv, mild xu, mod mr, mild tr, mild pr, nl rvsp Assessment/Plan new atrial fib: -HR controlled, now on bb, cont tele -? if contributing to new dizziness and/or LOPEZ sx's, vs all sec to anemia ( these sx's going on 2 wks which, of note, is the first time labs showed hgb down , per ER note) -despite pt without overt rectal bleeding or melena, and stool was neg for occult blood, the precipitous decline in counts from few mo prior and the very low MCV are concerning for intermittent occult GIBs. -foc here shows large colon mass, will continue to hold AC for now -CHADS VASC = 4, with approx 4%/year risk of CVA -the risk of stroke in next several days is therefore statistically much less than risk of dangerous bleeding on AC, and hence AC will be deferred until GIB/ Colon mass w/u is completed and pt can be risk-stratified for severe bleeding -echo unremarkable SOB with exertion: -new sx x 2 wks -suspect sec to anemia (as above) -also could be sx of afib and loss of AV synchrony -no overt chf, cxr clear -echo unremarkable -given anemia and afib are 2 much more likely explanation for these sx's, and pt without ischemic ecg findings or cp, will defer stress test at present time HTN: -reasonable control here -cont home lisinopril DM: -on orals at home -per pmd colon mass: -surgery, onc eval in progress, pt may need surgery preop CV eval: -may need colon mass surgery -Revised CV Risk Index = 1, unknown functional status -no s/sx of overt chf or acute myocardial ischemia -he is at low-intermediate risk for periop CV complications from colon surgery-- may proceed without further cardiac testing
--- NOTE | 2016-12-10 12:31 | PN ---
Physical Exam: SUBJECTIVE: Patient seen and examined. Feels well OBJECTIVE: Vital Signs Period Temp Pulse Resp BP Sys/Turcios Pulse Ox Last 24 Hr 96.3 F-98.8 F 80-98 17-22 98-162/44-89 95-99 GENERAL: Awake, alert, and fully oriented, in no acute distress. HEAD: Normal with no signs of trauma. EYES: Pupils equal, round and reactive to light, extraocular movements intact, Positive for conjunctival pallor. EARS, NOSE, THROAT: Ears normal, nares patent, oropharynx clear without exudates. Moist mucous membranes. NECK: Normal range of motion, supple without lymphadenopathy, JVD, or masses. LUNGS: Breath sounds equal, clear to auscultation bilaterally. No wheezes, and no crackles. No accessory muscle use. HEART: Irregularly Irregular rhythm, S1S2 without murmur ABDOMEN: Soft, mildly TTP RLQ and RUQ, not distended, normoactive bowel sounds, no guarding, no rebound MUSCULOSKELETAL: No CVA tenderness. UPPER EXTREMITIES: warm, well-perfused. No peripheral edema. LOWER EXTREMITIES: warm, well-perfused. No calf tenderness. trace non pitting edema. NEUROLOGICAL: Cranial nerves II-XII intact. Normal speech. PSYCHIATRIC: Cooperative. Good eye contact. Appropriate mood and affect. Laboratory Results - last 24 hr 12/09/16 12/09/16 12/10/16 15:36 21:42 05:40 WBC RBC Hgb Hct MCV MCHC RDW Plt Count MPV POC Glucometer 103 130 125 12/10/16 12/10/16 05:50 11:45 WBC 10.8 H RBC 4.97 Hgb 9.0 L D Hct 30.0 L MCV 60.4 L MCHC 29.9 L RDW 20.3 H Plt Count 328 MPV 8.5 POC Glucometer 127 Active Medications Generic Name Dose Route Start Last Admin Trade Name Freq PRN Reason Stop Dose Admin Gabapentin 300 mg 12/08/16 22:00 12/10/16 11:08 Neurontin - PO 300 mg BID DINO Administration Insulin Aspart 1 vial 12/08/16 16:30 12/10/16 11:50 Novolog Vial Sliding Scale - SQ Not Given ACHS DINO Protocol Lisinopril 20 mg 12/09/16 10:00 12/10/16 11:08 Prinivil PO 20 mg DAILY DINO Administration Metoprolol Tartrate 12.5 mg 12/10/16 10:00 12/10/16 11:08 Lopressor - PO 12.5 mg BID DINO Administration Tamsulosin HCl 0.4 mg 12/09/16 08:30 12/10/16 11:08 Flomax - PO 0.4 mg DAILY@0830 DINO Administration ASSESSMENT/PLAN: 81M with HTN DM and BPH admitted to the hospital for new onset A fib and acute microcytic anemia. New onset A fib: possible may be due to acute onset anemia Admit to telemetry Echo results noted Troponin negative cardiology consult appreciated [id number] score 4 Will hold on anticoagulation at this time secondary to anemia as patient may have a surgery in the foreseeable future HR was 100-110 this morning on telemetry review for a few minutes. Will start metoprolol 12.5mg po BID TFTs-WNL Ascending colon mass: this mass is nearly totally obstructing. likely the source of his anemia. statistically speaking given the presentation and the age of this patient this is likely colon Cancer send CEA level follow up pathology CT Chest ABD/Pelv for staging-if no metastasis will likely go for surgery tomorrow Oncology consult Microcytic anemia: from iron deficiency anemia secondary to ascending colon mass which was likely bleeding intermittently iron studies-Iron deficiency anemia GI consult Retic count high @ 1.9 trend CBC transfuse PRN Stool for occult blood negative RDW high B12-wnl and folate-high HTN: BP well controlled at this time continue lisinopril DM: hold metformin ISS finger sticks for BGM ACHS HbA1C 7.4 BPH: we do not carry rapaflo will start flomax FEN: no IVF no electrolyte issues CLD then NPO past midnight for possible surgery pending CT results PPx: hold chemical prophylaxis for now -continue SCDs no GI PPx criteria met Will assess daily need for PT at this time he does not need PT consult as he was ambulating Pre-op risk stratification. Patient is an intermediate risk for an intermediate risk surgery. Has a METS of about 4. Denies chest pain or exertional angina symptoms. Recent diagnosis of A. Fib but is rate controlled and he is on a beta wendie and has been asymptomatic. A fib could be related to anemia. Recent decrease in exercise tolerance secondary to anemia. Patient does not need any further testing or cardiac work up. Cardiology input for pre-op risk stratification greatly appreciated. patient seen and case discussed with attending Dr. Hackett Visit type - Emergency Visit Emergency Visit: Yes ED Registration Date: 12/08/16 Care time: The patient presented to the Emergency Department on the above date and was hospitalized for further evaluation of their emergent condition. - New Patient This patient is new to me today: No - Critical Care Critical Care patient: No - Discharge Referral Referred to [facility] Yes Physician Referral: Alvaro Doty MD ([facility])
--- NOTE | 2016-12-10 13:12 | PN ---
Teaching Attending Note Name of Resident: Jose Enrique Johnson ATTENDING PHYSICIAN STATEMENT I saw and evaluated the patient. I reviewed the resident's note and discussed the case with the resident. I agree with the resident's findings and plan as documented. SUBJECTIVE: no fever or chills, no abd pain . had colonoscopy today OBJECTIVE: NAD Cv : RRR Lungs : CTAB ext : no edema Abd : soft, TTP in RLQ , no rebound tenderness or guarding , nL BS ASSESSMENT AND PLAN: 81 y/o man with h/o HTN, And DM who was sent for anemia , and was found to have new onset A fib 1- New onset A fib: asymptomatic , on tele with episodes of RVR - Start low dose BB and titrate up if needed . - CHADSVASC of 4 , ideally need AC, will hold off now as he might have sx tomorrow . 2- Iron def anemia : likely from colon cancer 3- colon mass : - Colonoscopy results d/w Dr. Huynh. R colon mass ( near obstructing mass) - case d/w Dr. Ceja. - CT scan of C/A/P for staging. if no mets will have R hemicolectomy tomorrow. - Onc consult -Pre-Op risk stratification: this sx is intermediate risk . the pt has new onset Af ib but his rate is controlled, and he was started o n BB this am . he has no signs of heart failure , echo is unremarkable. he has no anginal sx. his functinal status ( about 4 Mets ) . he will be intermediate risk fro this intermediate risk sx. he needs no further w/u before sx. he will need to take BB before sx to optimize medically 4- Dm : hold metformin and cont SSI Dispo : pending results and w/u
[2016-12-10] MEDS ORDERED: SODIUM CHLORIDE 0.45% 1,000 ML IV SCH (13:15)
[2016-12-10 14:35] VITALS: BP 127/69; PULSE 85; TEMP 98
[2016-12-10] MEDS ORDERED: metroNIDAZOLE 500 MG TABLET PO SCH (15:30)
[2016-12-10] MEDS ORDERED: NEOMYCIN SO4 500 MG TABLET PO SCH (15:30)
--- NOTE | 2016-12-10 15:37 | DS ---
Physical Exam: SUBJECTIVE: Patient seen and examined. wants to go home so he can see Dr. Barrios at [facility] for a second opinion. OBJECTIVE: Vital Signs Period Temp Pulse Resp BP Sys/Turcios Pulse Ox Last 24 Hr 96.3 F-98.8 F 80-98 17-22 98-162/44-89 95-99 PHYSICAL EXAM GENERAL: Awake, alert, and fully oriented, in no acute distress. HEAD: Normal with no signs of trauma. EYES: Pupils equal, round and reactive to light, extraocular movements intact, Positive for conjunctival pallor. EARS, NOSE, THROAT: Ears normal, nares patent, oropharynx clear without exudates. Moist mucous membranes. NECK: Normal range of motion, supple without lymphadenopathy, JVD, or masses. LUNGS: Breath sounds equal, clear to auscultation bilaterally. No wheezes, and no crackles. No accessory muscle use. HEART: Irregularly Irregular rhythm, S1S2 without murmur ABDOMEN: Soft, mildly TTP RUQ and RLQ, not distended, normoactive bowel sounds, no guarding, no rebound MUSCULOSKELETAL: No CVA tenderness. UPPER EXTREMITIES: warm, well-perfused. No peripheral edema. LOWER EXTREMITIES: warm, well-perfused. No calf tenderness. trace non pitting edema. NEUROLOGICAL: Cranial nerves II-XII intact. Normal speech. PSYCHIATRIC: Cooperative. Good eye contact. Appropriate mood and affect. LABS Laboratory Results - last 24 hr 12/09/16 12/09/16 12/10/16 15:36 21:42 05:40 WBC RBC Hgb Hct MCV MCHC RDW Plt Count MPV POC Glucometer 103 130 125 12/10/16 12/10/16 05:50 11:45 WBC 10.8 H RBC 4.97 Hgb 9.0 L D Hct 30.0 L MCV 60.4 L MCHC 29.9 L RDW 20.3 H Plt Count 328 MPV 8.5 POC Glucometer 127 HOSPITAL COURSE: Date of Admission:12/08/16 Date of Discharge: 12/10/16 81M with PMH of HTN BPH DM presented from his PMD office for anemia. He had a 6 gram grop in Hb from 14 to 8 over the past couple of weeks. also had decreased exercise tolerance over the past few weeks from anemia. in the ED he was noted to be in new onset atrial fibrillation. worked up with an echo which showed bi- atrial enlargement otherwise no systolic or diastolic failure. Admitted to telemetry. Worked up with EGD and colonoscopy found to have an ascending obstructing colon mass likely CA. CEA sent and pending have CT Chest abdomen and pelvis for staging. No liver mets. 2 Small right lung nodules about a centimeter each follow up recommended. Plan was to go to surgery tomorrow for hemicolectomy but patient and his family want a second opinion and will follow up with Dr. Barrios at [place]. Started on Beta wendie for a fib. Iron studies show iron deficiency anemia. Sent home on iron. The plan, risks of delaying treatment, and how to move forward from this point on explained in detail to the patient family at bedside. He had about 6 family members at bedside including his daughter son and son in law to name a few. Stable for discharge. Minutes to complete discharge: 50 Discharge Summary Reason For Visit: ANEMIA,ATRIAL FIBRILLATION Current Active Problems Anemia (Acute) Ascending colon malignant neoplasm (Acute) Atrial fibrillation (Acute) Diabetes (Acute) BPH (benign prostatic hyperplasia) (Chronic) Hypertension (Chronic) Condition: Stable - Instructions Diet, Activity, Other Instructions: eat a low sodium low carbohydrate diet if you can not tolerate the diet drink only clear liquids do not take your metformin until Wednesday night as you had contrast today during your CT scan You need to follow up with a surgeon as soon as possible you need to follow up with your primary care doctor follow up with an oncologist Dr. Lau follow up with cardiology Dr. Caballero follow up with press loader Dr. Bourgeois who did your endoscopies you need to be on a blood thinner because of your atrial fibrillation ( irregular heart beat) but not now as you are having bleeding from your colon mass. once you get this mass taken care of you need to start a blood thinner if you get weak or dizzy go to the nearest emergency room You need to take Metoprolol to control your heart rate. This was sent to the pharmacy you will need a follow up CT scan of your chest for evaluation of the lung lesions you will need to take iron pills for your anemia and you may get constipated take over the counter stool softeners DO NOT TAKE ANY ASPIRIN It was my pleasure taking care of you Good luck Best, Dr. Johnson Referrals: Alvaro Pal MD [Primary Care Provider] - 1 Week Daljit Bourgeois MD [Staff Physician] - Parvez Caballero MD [Staff Physician] - 2 Weeks Tony Ceja MD [Staff Physician] - 1 Week Jeff Lau MD [Staff Physician] - 1 Week Disposition: HOME - Home Medications Comprehensive Discharge Medication List: Ambulatory Orders Lisinopril [Prinivil] 20 mg PO DAILY 12/08/16 Metformin HCl 500 mg PO BID 12/08/16 Silodosin [Rapaflo] 8 mg PO DAILY 12/08/16 Metoprolol Tartrate [Lopressor -] 12.5 mg PO BID #60 tablet 12/10/16 This patient is new to me today: No Emergency Visit: No Critical Care patient: No - Discharge Referral Referred to [facility] Yes Physician Referral: Alvaro Doty MD ([facility])
--- NOTE | 2016-12-10 16:18 | EKG ---
Test Reason : Blood Pressure : / mmHG Vent. Rate : 079 BPM Atrial Rate : 061 BPM P-R Int : 000 ms QRS Dur : 096 ms QT Int : 392 ms P-R-T Axes : 000 -08 005 degrees QTc Int : 449 ms ATRIAL FIBRILLATION ABNORMAL ECG WHEN COMPARED WITH ECG OF 08-DEC-2016 13:04, NO SIGNIFICANT CHANGE WAS FOUND Confirmed by IVANA TAYLOR MD ([id number]) on 12/10/2016 4:17:40 PM Referred By: Eloy AMAYA Confirmed By:IVANA TAYLOR MD
[2016-12-11] MEDS ORDERED: ALVIMOPAN 12 MG CAP PO SCH (12:00)
--- NOTE | 2016-12-11 12:31 | PATH ---
Surgical Pathology Report Patient Name: CARLOS ALBERTO LEE [facility]. Rec. #: [id number] /Age/Gender: 1935 (Age: 81) / M Account: [id number] Location: 4 W TELEMETRY U Taken: 12/10/2016 Received: 12/10/2016 Reported: 12/11/2016 Physicians: Daljit Bourgeois M.D. 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 Comment: This case was discussed with Dr. Bourgeois on December 11, 2016. Immunostains for mismatch repair protein analysis are pending, and a report will follow. Electronically Signed Bernabe Farnsworth M.D. 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 This result indicates an MSI-H unstable tumor. MLH promoter methylation analysis is pending to determine whether the loss of hMLH-1 and PMS2 is due to an acquired or a germline mutation (HNPCC, Greer syndrome) and will be reported in an addendum. Issac Guido M.D. 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 Comment: MLH1 methylation is common in sporadic microsatellite unstable tumors, like colorectal cancer and endometrial cancer, and rarely occurs in Greer syndrome (hereditary non-polyposis colon cancer or HNPCC). Therefore, the presence of MLH1 methylation suggests that the tumor is sporadic and not associated with Lymph syndrome. However, since there have seen rare reports of Greer syndrome-associated MLH1 methylation, all results should be interpreted within the clinical context. Issac Guido M.D. Gross Description Received in formalin, labeled "biopsy ascending colon mass" are 5 ruiz, irregular portions of soft tissue ranging from 0.1-0.5 cm. in greatest dimension. The specimens are submitted in toto in one cassette. 12/10/201612/10/2016
== END 2016-12-10 16:25 | disposition home or self-care (01) | DRG 376 ==
LOC: JER 11:09 → JERBED 14:47 → J4W 15:44
PROVIDERS: ADMIT Internal Medicine; ATTEND Internal Medicine
PROC: 0DJ08ZZ Inspection of Upper Intestinal Tract, Via Natural or Artificial Opening Endoscopic (ICD-10-PCS; 2016-12-10)
PROC: 0DBK8ZX Excision of Ascending Colon, Via Natural or Artificial Opening Endoscopic, Diagnostic (ICD-10-PCS; principal; 2016-12-10 08:00)
DX: C18.2 Malignant neoplasm of ascending colon (principal); I48.91 Unspecified atrial fibrillation; I10 Essential (primary) hypertension; E11.9 Type 2 diabetes mellitus without complications; N40.0 Benign prostatic hyperplasia without lower urinary tract symptoms; D50.9 Iron deficiency anemia, unspecified; E11.40 Type 2 diabetes mellitus with diabetic neuropathy, unspecified; K57.30 Diverticulosis of large intestine without perforation or abscess without bleeding
CPT/HCPCS: 36415; 71010-TC; 71260-TC; 74178-TC; 80048; 80053; 82272; 82378; 82550; 82607; 82728; 82746; 83036; 83540; 83550; 83735; 83880; 84100; 84443; 84466; 84484; 85025; 85027; 85044; 85610; 86850; 86900; 86901; 88305-TC; 93005; 93010; 93306-TC; 99283-25; Q9967